=== PATIENT | male | born 1995 | race Two or more races ===

== ENCOUNTER 2016-08-14 12:27 | Emergency (ER) | payer BC ==
--- NOTE | 2016-08-14 15:29 | ED ---
Laceration/Wound HPI - HPI Summary HPI Summary: Patient arrives to with CC of left eyelid laceration after being hit in the eye with a football this morning during practice. He denies blood thinners. Denies decreased visual acuity, blurry vision, double vision or LEUNG. Denies LOC or hitting his head. Denies neuro symptoms. He was able to attend class after and endorses minimal blood loss. Otherwise healthy and takes no medications. - History of Current Complaint Stated Complaint: EYE LACERATION Time Seen by Provider: 08/14/16 15:08 Hx Obtained From: Patient Mechanism of Injury: Sharp/Blunt Trauma Onset/Duration: Sudden Onset Aggravating: Nothing Alleviating: Nothing Timing: Constant Onset Severity: Mild Current Severity: Mild Pain Intensity: 0 Pain Scale Used: 0-10 Numeric Associated Signs & Symptoms: Negative - Allergy/Home Medications Allergies/Adverse Reactions: Allergies Allergy/AdvReac Type Severity Reaction Status Date / Time Penicillins Allergy Unknown Rash Verified 08/14/16 14:22 Home Medications: Home Medications NK [No Home Medications Reported] 08/14/16 [History Confirmed 08/14/16] PMH/Surg Hx/FS Hx/Imm Hx Previously Healthy: Yes Endocrine/Hematology History: Denies: Hx Diabetes, Hx Thyroid Disease Cardiovascular History: Denies: Hx Hypertension Respiratory History: Denies: Hx Asthma, Hx Chronic Obstructive Pulmonary Disease (COPD) GI History: Denies: Hx Ulcer Infectious Disease History: No Infectious Disease History: Denies: Hx Clostridium Difficile, Hx Hepatitis, Hx Human Immunodeficiency Virus (HIV), Hx of Known/Suspected MRSA, Hx Shingles, Hx Tuberculosis, Hx Known/ Suspected VRE, Hx Known/Suspected VRSA, History Other Infectious Disease, Traveled Outside the [place] in Last 30 Days - Social History Occupation: Student Lives: Alone Alcohol Use: Rare Hx Substance Use: No Substance Use Type: Reports: None Smoking Status (MU): Never Smoked Tobacco Review of Systems Constitutional: Negative Eyes: Negative Cardiovascular: Negative Respiratory: Negative Positive: no symptoms reported, see HPI Musculoskeletal: Negative Skin: Negative Psychological: Normal All Other Systems Reviewed And Are Negative: Yes Physical Exam Triage Information Reviewed: Yes Vital Signs On Initial Exam: Initial Vitals Temp Pulse Resp BP Pulse Ox 98.6 F 64 16 124/78 100 08/14/16 14:23 08/14/16 14:23 08/14/16 14:23 08/14/16 14:23 08/14/16 14:23 Vital Signs Reviewed: Yes Appearance: Positive: Well-Appearing, Well-Nourished Skin: Positive: Warm, Skin Color Reflects Adequate Perfusion, Other - small 1cm laceration to the lateral part of the left upper eyelid Head/Face: Positive: Normal Head/Face Inspection Eyes: Positive: Normal, IRENE, Conjunctiva Clear Neck: Positive: Supple, No Lymphadenopathy Respiratory/Lung Sounds: Positive: Clear to Auscultation, Breath Sounds Present Musculoskeletal: Positive: Normal, Limited @ Neurological: Positive: Normal, Sensory/Motor Intact, Alert, Oriented to Person Place, Time, Speech Normal Psychiatric: Positive: Normal Diagnostics - Vital Signs Vital Signs Temp Pulse Resp BP Pulse Ox 08/14/16 14:23 98.6 F 64 16 124/78 100 - Laboratory Lab Statement: Any lab studies that have been ordered have been reviewed, and results considered in the medical decision making process. Laceration Repair Course/Dx - Course Course Of Treatment: Adhesive glue to the upper eye lid. Patient tolerated well without complications. Superficial 1cm laceration to the lateral upper eyelid without involving eye. - Differential Dx Differental Diagnoses: Abrasion, Laceration, Puncture Wound - Clinical Impression Provider Diagnoses: Laceration Discharge - Discharge Plan Condition: Stable Disposition: HOME Patient Education Materials: Skin Adhesive Care (ED) Additional Instructions: Do not stretch the skin of the eye out. The adhesive will slowly come off If the area opens up wide again, come back to [facility] You may use steri strips over the area to keep the area from opening up.
== END 2016-08-14 15:25 | disposition home or self-care (01) ==
LOC: UCEAST 12:27
DX: S01.112A Laceration without foreign body of left eyelid and periocular area, initial encounter (principal); W21.01XA Struck by football, initial encounter; Y93.9 Activity, unspecified; Y99.9 Unspecified external cause status; Z88.0 Allergy status to penicillin
CPT/HCPCS: 12011; 99201; G0463

== ENCOUNTER 2016-09-01 21:03 | Emergency (ER) | payer BC ==
[2016-09-01 21:44] VITALS: BP 135/82
[2016-09-01] MEDS ORDERED: HYDROcodone/ACETAMIN 5-325 MG* 1 TAB PO ONE ×2 (22:03→23:11)
[2016-09-01] MEDS ORDERED: Cephalexin CAP* 500 MG PO ONE (23:11)
--- NOTE | 2016-09-02 02:23 | ED ---
Laceration/Wound HPI - HPI Summary HPI Summary: Patient presents to ED with a laceration to the bottom lip after colliding with another player during football, striking heads and front teeth cut lips. He states there was moderate bleeding. Injury occurred approx 1 hour ago. He denies numbness or tingling. He is able to swallow and denies other injuries. He denies LOC, N/V, confusion, memory loss or other pain. Pain is 3/10 and located at jaw and lower lip. He states he is able to move his jaw OK and does not think its broken. - History of Current Complaint Stated Complaint: LIP LAC Time Seen by Provider: 09/01/16 22:01 Hx Obtained From: Patient Mechanism of Injury: Sharp/Blunt Trauma Onset/Duration: Sudden Onset Aggravating: Nothing Alleviating: Nothing Timing: Constant Onset Severity: Mild Current Severity: Mild Pain Intensity: 3 Pain Scale Used: 0-10 Numeric Associated Signs & Symptoms: Tingling, Pain - Allergy/Home Medications Allergies/Adverse Reactions: Allergies Allergy/AdvReac Type Severity Reaction Status Date / Time Penicillins Allergy Unknown Rash Verified 09/01/16 21:41 PMH/Surg Hx/FS Hx/Imm Hx Previously Healthy: Yes Endocrine/Hematology History: Denies: Hx Diabetes, Hx Thyroid Disease Cardiovascular History: Denies: Hx Hypertension Respiratory History: Denies: Hx Asthma, Hx Chronic Obstructive Pulmonary Disease (COPD) GI History: Denies: Hx Ulcer - Immunization History Hx Pertussis Vaccination: No Immunizations Up to Date: No Infectious Disease History: No Infectious Disease History: Denies: Hx Clostridium Difficile, Hx Hepatitis, Hx Human Immunodeficiency Virus (HIV), Hx of Known/Suspected MRSA, Hx Shingles, Hx Tuberculosis, Hx Known/ Suspected VRE, Hx Known/Suspected VRSA, History Other Infectious Disease, Traveled Outside the [place] in Last 30 Days - Social History Occupation: Student Lives: With Family Alcohol Use: Rare Hx Substance Use: No Substance Use Type: Reports: None Hx Tobacco Use: No Smoking Status (MU): Never Smoked Tobacco Do You Chew or Dip Tobacco: No Review of Systems Constitutional: Negative Eyes: Negative Positive: Dental Pain Cardiovascular: Negative Respiratory: Negative Musculoskeletal: Negative Positive: Other - laceration to lower lip Neurological: Negative Psychological: Normal All Other Systems Reviewed And Are Negative: Yes Physical Exam Triage Information Reviewed: Yes Vital Signs On Initial Exam: Initial Vitals Temp Pulse Resp BP Pulse Ox 98.8 F 78 16 135/82 99 09/01/16 21:42 09/01/16 21:42 09/01/16 21:42 09/01/16 21:42 09/01/16 21:42 Vital Signs Reviewed: Yes Appearance: Positive: Well-Appearing, No Pain Distress, Well-Nourished Skin: Positive: Warm, Skin Color Reflects Adequate Perfusion, Other - 2 lacerations to lower lip, both at approx 1 cm. laceration 1 is located on outer lower lip, laceration 2 is inside lower lip. laceration is not through and through. Head/Face: Positive: Normal Head/Face Inspection Eyes: Positive: Normal, IRENE Dental: Positive: Other - right front tooth pushed back Neck: Positive: Supple, Nontender, No Lymphadenopathy Respiratory/Lung Sounds: Positive: Clear to Auscultation, Breath Sounds Present Cardiovascular: Positive: Normal, RRR, Pulses are Symmetrical in both Upper and Lower Extremities Musculoskeletal: Positive: Normal, Strength/ROM Intact Neurological: Positive: Normal, Sensory/Motor Intact, Alert, Oriented to Person Place, Time Psychiatric: Positive: Normal AVPU Assessment: Alert Procedures - Laceration/Wound Repair 1 Location: mouth, Other - lip Description: Irregular Anesthesia: Local, 1.0%, Lido Betadine Prep?: No Irrigated w/ Saline (ccs): 10 Laceration/Wound Explored: contaminated Closure: Single Layer Suture Type: Chromic Number of Sutures: 3 Layer Closure?: No Sterile Dressing Applied?: No 2 Location: head, Other - lip Description: Irregular Anesthesia: Local, 1.0%, Lido Betadine Prep?: No Irrigated w/ Saline (ccs): 10 Laceration/Wound Explored: contaminated Closure: Single Layer Suture Type: Chromic Number of Sutures: 5 Layer Closure?: No Sterile Dressing Applied?: No Diagnostics - Vital Signs Vital Signs Temp Pulse Resp BP Pulse Ox 09/01/16 21:42 98.8 F 78 16 135/82 99 - Laboratory Lab Statement: Any lab studies that have been ordered have been reviewed, and results considered in the medical decision making process. Laceration Repair Course/Dx - Course Course Of Treatment: Physical exam performed focusing on neuro. Jaw with discomfort, but able to move OK and only slight tenderness over TMJ. 2 lacerations to lower lip, both at approx 1 cm. laceration 1 is located on outer lower lip, laceration 2 is inside lower lip. laceration is not through and through. 8 absorbable sutures total placed. Despite the irregularity of the wound, the edges appropriated well. Patient tolerated well. 2 hydrocodone given prior to procedure. RX sent for CONSTABLE. Return precautions and care instructions given. Patient OK for discharge. patient agrees to follow up and Dr Chavarria number given. antibitoics given d/t contaminated wound. Keflex prescribed to cover oral mallorie. - Differential Dx Differental Diagnoses: Dehiscence, Hematoma, Joint Infection, Laceration, Puncture Wound - Clinical Impression Provider Diagnoses: Lip laceration Discharge - Discharge Plan Condition: Stable Disposition: HOME Prescriptions: Cephalexin CAP* [Keflex CAP*] 500 mg PO QID #28 cap MDD 4 oxyCODONE/Acetamin 10/325(NF) [Percocet 10/325 (NF)] 1 tab PO Q6H PRN #18 tab MDD 4 PRN Reason: Pain Patient Education Materials: Care For Your Absorbable Stitches (ED) Referrals: Alfred Avalos MD [Medical Doctor] - Non Staff,Doctor [Medical Doctor] - Additional Instructions: Ice the area if swelling occurs. Ibuprofen 600mg three times daily On opposite schedule of ibuprofen, take oxycodone as prescribed. Follow up with Dr. Chavarria, plastic surgery. If jaw symptoms become worse, please come back to ED
== END 2016-09-01 23:26 | disposition home or self-care (01) ==
LOC: ED 21:03
DX: S01.511A Laceration without foreign body of lip, initial encounter (principal); Z88.0 Allergy status to penicillin; W51.XXXA Accidental striking against or bumped into by another person, initial encounter; Y93.61 Activity, american tackle football; Y92.9 Unspecified place or not applicable
CPT/HCPCS: 12011; 99282; A9270-GY